=== PATIENT | female | born 1990 | race Caucasian/White ===

== ENCOUNTER 2020-01-10 06:15 | Inpatient (IN) | payer BC ==
[2020-01-10] MEDS ORDERED: Lidocaine 1% 50 ML MDV ONE (07:50)
[2020-01-10] MEDS ORDERED: Sodium Chloride 0.9% 10 ML Syringe FLUSH PRN (08:05)
[2020-01-10] MEDS ORDERED: Nalbuphine 10 MG/ML Syringe IVPUSH PRN (08:05)
--- NOTE | 2020-01-10 08:05 | PCM.LDHP ---
L&D History of Present Illness - General Date of Service: 01/10/20 Admit Problem/Dx: Patient Status Order with Admit Dx/Problem 01/10/20 06:28 Patient Status [ADT] Routine Admission Diagnosis/Problem Admission Diagnosis/Problem Source of Information: Patient History Limitations: Reports: No Limitations - History of Present Illness Introduction:: Patient is a 29 y/o at 40 1/7 wks who presents in labor. Contractions started early this AM, about 0200. Have become more bothersome. Doing well otherwise - Related Data Allergies/Adverse Reactions: Allergies Allergy/AdvReac Type Severity Reaction Status Date / Time No Known Allergies Allergy Verified 01/10/20 11:35 Home Medications: Home Meds Calcium Carb,Gluc/Mag Ox,Gluc [Calcium Magnesium Caplet] 1 tab PO DAILY [History] Ferrous Sulfate [Iron] 325 mg PO DAILY 01/10/20 [History] Prenat 115/Iron Fum/Folic/Dss [ 19 Tablet] 1 tab PO DAILY 01/10/20 [ History] Past Medical History [employer] History: Reports: : 2 Para: 1 LMP (Approximate): - Past Surgical History Musculoskeletal Surgical History: Reports: Other (See Below) Other Musculoskeletal Surgeries/Procedures:: bilateral knee surgeries Social & Family History - Family History Family Medical History: Noncontributory - Tobacco Use Smoking Status *Q: Never Smoker - Alcohol Use Alcohol Use History: No - Recreational Drug Use Recreational Drug Use: No H&P Review of Systems - Review of Systems: Review Of Systems: See Below General: Reports: No Symptoms Pulmonary: Reports: No Symptoms Cardiovascular: Reports: No Symptoms Gastrointestinal: Reports: Abdominal Pain Genitourinary: Reports: No Symptoms Musculoskeletal: Reports: No Symptoms Psychiatric: Reports: No Symptoms Neurological: Reports: No Symptoms L&D Exam - Exam Exam: See Below - Vital Signs Weight: 101.151 kg - OB Specific Contraction Intensity: Strong Movement: Active Heart Tones: Present Heart Tones per Min: 125 Heart Rate (FHR) Variability: Moderate (6-25 bmp) Presentation: Vertex - Keenan Score Keenan Score Cervix Position: Anterior Keenan Score Consistency: Soft Keenan Score Effacement: >80% Keenan Score Dilation: > 5 cm Keenan Score 's Station: -1 ,0 Keenan Score Total: 12 - Exam General: Alert, Oriented, Cooperative Lungs: Clear to Auscultation, Normal Respiratory Effort Cardiovascular: Regular Rate, Regular Rhythm GI/Abdominal Exam: Soft, Non-Tender Genitourinary: Normal external exam Extremities: Normal Inspection Skin: Warm, Dry, Intact - Problem List (1) 40 weeks gestation of SNOMED Code(s): 84665775 ICD Code: Z3A.40 - 40 WEEKS GESTATION OF Status: Acute Current Visit: Yes (2) Normal labor SNOMED Code(s): 60357415 ICD Code: O80 - ENCOUNTER FOR FULL-TERM UNCOMPLICATED DELIVERY; Z37.9 - OUTCOME OF DELIVERY, UNSPECIFIED Status: Acute Current Visit: Yes Problem List Initiated/Reviewed/Updated: Yes Orders Last 24hrs: Active Orders 24 hr Category Date Time Status Patient Status [ADT] Routine ADT 01/10/20 06:28 Active Non Stress Test [RC] PER UNIT ROUTINE Care 01/10/20 06:28 Active Vital Signs [RC] PER UNIT ROUTINE Care 01/10/20 06:28 Active Resuscitation Status Routine Resus Stat 01/10/20 06:27 Ordered Assessment/Plan Comment:: * Patient initially presented 4 cm dilation and quickly went to complete. AROM done once complete. See delivery note. * GBS negative * Labs were done
--- NOTE | 2020-01-10 08:08 | PCM.DEL ---
L & D Note - General Info Date of Service: 01/10/20 - Delivery Note Labor: Spontaneous Delivery Outcome: Livebirth Delivery Method: Spontaneous Vaginal Delivery-Single Delivery Mode: Spontaneous Presentation: Right Occiput Anterior (TOMMIE) Nuchal Cord: None Anesthesia Type: None Amniotic Fluid Description: Clear Episiotomy Type: None Laceration: None Placenta: Intact, Spontaneous Cord: 3 Vessels Estimated Blood Loss: 100 Delivery Comments (Free Text/Narrative):: Patient found to be complete and began pushing. With maternal pushing effort head delivered from an TOMMIE presentation. No nuchal cord present. With gentle downward traction shoulders and body delivered. placed on maternal abdomen. Cord clamped and cut. Cord blood obtained. Placenta allowed time to separate and expelled intact. Inspection of the perineum showed no lacerations. - General Info Date of Service: 01/10/20 - Patient Data Weight - Most Recent: 101.151 kg - Problem List & Annotations (1) 40 weeks gestation of SNOMED Code(s): 65608316 Code(s): Z3A.40 - 40 WEEKS GESTATION OF Status: Acute Current Visit: Yes (2) Normal labor SNOMED Code(s): 78285127 Code(s): O80 - ENCOUNTER FOR FULL-TERM UNCOMPLICATED DELIVERY; Z37.9 - OUTCOME OF DELIVERY, UNSPECIFIED Status: Acute Current Visit: Yes (3) Vaginal delivery SNOMED Code(s): 745447207 Code(s): O80 - ENCOUNTER FOR FULL-TERM UNCOMPLICATED DELIVERY Status: Acute Current Visit: No - Problem List Review Problem List Initiated/Reviewed/Updated: Yes - My Orders Last 24 Hours: My Active Orders 01/10/20 06:27 Resuscitation Status Routine 01/10/20 06:28 Patient Status [ADT] Routine Non Stress Test [RC] PER UNIT ROUTINE Vital Signs [RC] PER UNIT ROUTINE 01/10/20 08:05 Activity as Tolerated [RC] PFP Communication Order [RC] ASDIRECTED Vital Signs [RC] PER UNIT ROUTINE RAPID PLASMA REAGIN,RPR [CHEM] Routine TYPE AND SCREEN [BBK] Routine Nalbuphine [Nubain] 10 mg IVPUSH Q2H PRN Sodium Chloride 0.9% [Saline Flush] 10 ml FLUSH ASDIRECTED PRN Peripheral IV Insertion Adult [OM.PC] Routine 01/10/20 08:06 Peripheral IV Care [RC] . DIRECTED 01/10/20 08:07 Patient Status Manage Transfer [TRANSFER] Routine 01/10/20 08:15 Lactated Ringers [Ringers, Lactated] 1,000 ml IV ASDIRECTED Oxytocin/Lactated Ringers [Pitocin in LR 10 Units/1,000 ML] 10 unit in 1,000 ml IV TITRATE - Assessment Assessment:: PPD#0 - Plan Plan:: * Routine cares * Breast feeding * Discharge home in 1-2 days
[2020-01-10] MEDS ORDERED: Lactated Ringers 1,000 ML IV SCH (08:15)
[2020-01-10] MEDS ORDERED: Oxytocin/Lactated Ringers 10 UNIT/1,000 ML BAG IV SCH (08:15)
[2020-01-10] MEDS ORDERED: Benzocaine/Menthol 20%-0.5% Spray 56 GM Canister TOP PRN (08:43)
[2020-01-10] MEDS ORDERED: Witch Hazel Medicated Pads 40/Jar TOP PRN (08:43)
[2020-01-10] MEDS ORDERED: Acetaminophen 325 MG Tab PO PRN (08:43)
[2020-01-10] MEDS: Docusate Sodium 100 MG Cap PO PRN ×2 (09:55→19:55)
[2020-01-10] MEDS: Ibuprofen 600 MG Tab PO PRN ×2 (11:14→19:54)
--- NOTE | 2020-01-11 08:02 | PCM.PNPP ---
- General Info Date of Service: 01/11/20 Functional Status: Reports: Pain Controlled, Tolerating Diet, Ambulating, Urinating - Review of Systems General: Reports: No Symptoms Pulmonary: Reports: No Symptoms Cardiovascular: Reports: No Symptoms Gastrointestinal: Reports: No Symptoms Genitourinary: Reports: No Symptoms Musculoskeletal: Reports: No Symptoms Neurological: Reports: No Symptoms - Patient Data Vital Signs - Most Recent: Last Vital Signs Temp 36.9 C 01/11/20 03:09 Pulse 79 01/11/20 03:09 Resp 16 01/11/20 03:09 BP 119/63 01/11/20 03:09 Pulse Ox 99 01/11/20 03:09 Weight - Most Recent: 101.151 kg I&O - Last 24 Hours: Intake & Output 01/10/20 01/11/20 01/11/20 22:59 06:59 14:59 Intake Total 120 Balance 120 Lab Results - Last 24 Hours: Laboratory Results - last 24 hr 01/10/20 01/10/20 Range/Units 09:12 09:12 RPR Non-reactive (NONREACTIVE) Blood Type O POSITIVE Gel Antibody Screen Negative Med Orders - Current: Current Medications Acetaminophen (Tylenol) 650 mg PO Q4H PRN PRN Reason: mild pain or fever Benzocaine/Menthol (Dermoplast Pain Relief [place]) 0 gm TOP ASDIRECTED PRN PRN Reason: Perineal Comfort Measure Last Admin: 01/10/20 09:55 Dose: 1 can Docusate Sodium (Colace) 100 mg PO BID PRN PRN Reason: Constipation Last Admin: 01/10/20 19:55 Dose: 100 mg Ibuprofen (Motrin) 600 mg PO Q6H PRN PRN Reason: Mild pain or fever Last Admin: 01/10/20 19:54 Dose: 600 mg Witch Brian (Tucks) 1 pad TOP ASDIRECTED PRN PRN Reason: Perineal Comfort Measure Last Admin: 01/10/20 09:54 Dose: 1 container Discontinued Medications Lactated Ringer's (Ringers, Lactated) 1,000 mls @ 100 mls/hr IV ASDIRECTED MAGALY Oxytocin/Lactated Ringer's (Pitocin In Lr 10 Units/1,000 Ml) 10 unit in 1,000 mls @ 500 mls/hr IV TITRATE MAAGLY; Protocol Last Admin: 01/10/20 12:48 Dose: 500 mls/hr Lidocaine HCl (Xylocaine 1%) Confirm Administered Dose 50 ml .ROUTE .PhilSmile-MED ONE Stop: 01/10/20 07:51 Last Admin: 01/10/20 09:54 Dose: Not Given Nalbuphine HCl (Nubain) 10 mg IVPUSH Q2H PRN PRN Reason: Pain Sodium Chloride (Saline Flush) 10 ml FLUSH ASDIRECTED PRN PRN Reason: Keep Vein Open - Interaction Disposition, : in Room with Family Infant Interaction: Holding Infant Feeding: Breastfed Infant; Nursed Well Support Person: - Recovery Exam Fundal Tone: Firm Fundal Level: 1 Fingerbreadths Below Umbilicus Fundal Placement: Midline Lochia Amount: Small Lochia Color: Rubra/Red Perineum Description: Intact, Minimal Bruising/Swelling Episiotomy/Laceration: None Bladder Status: Voiding Urinary Elimination: Voided - Exam General: Alert, Oriented, Cooperative GI/Abdominal Exam: Soft, Non-Tender Extremities: Normal Inspection Skin: Warm, Dry, Intact - Problem List & Annotations (1) 40 weeks gestation of SNOMED Code(s): 60289216 Code(s): Z3A.40 - 40 WEEKS GESTATION OF Status: Acute (2) Normal labor SNOMED Code(s): 96701282 Code(s): O80 - ENCOUNTER FOR FULL-TERM UNCOMPLICATED DELIVERY; Z37.9 - OUTCOME OF DELIVERY, UNSPECIFIED Status: Acute (3) Vaginal delivery SNOMED Code(s): 324730424 Code(s): O80 - ENCOUNTER FOR FULL-TERM UNCOMPLICATED DELIVERY Status: Acute - Problem List Review Problem List Initiated/Reviewed/Updated: Yes - My Orders Last 24 Hours: My Active Orders 01/10/20 08:05 Activity as Tolerated [RC] PFP Communication Order [RC] ASDIRECTED Vital Signs [RC] PER UNIT ROUTINE 01/10/20 08:06 Peripheral IV Care [RC] . DIRECTED 01/10/20 08:43 Activity as Tolerated [RC] PER UNIT ROUTINE Vital Signs [RC] 03,09,15,21 Acetaminophen [Tylenol] 650 mg PO Q4H PRN Benzocaine/Menthol [Dermoplast Pain Relief [place]] See Dose Instructions TOP ASDIRECTED PRN Docusate Sodium [Colace] 100 mg PO BID PRN Ibuprofen [Motrin] 600 mg PO Q6H PRN witch Brian [Tucks] 1 pad TOP ASDIRECTED PRN Assess Lochia [WOMSER] Per Unit Routine Assess Uterine Involution [WOMSER] Per Unit Routine Breast Pump [WOMSER] Per Unit Routine Heat Therapy [OM.PC] PRN Ice Therapy [OM.PC] Per Unit Routine Perineal Care [OM.PC] Per Unit Routine Peripheral IV Discontinue [OM.PC] Routine Sitz Bath [OM.PC] Per Unit Routine 01/10/20 09:12 PATIENT RETYPE [BBK] Routine 01/11/20 08:02 Ready for Discharge [RC] PER UNIT ROUTINE 01/11/20 08:43 Heat Therapy [OM.PC] PRN - Assessment Assessment:: PPD#1 - Plan Plan:: * Routine cares * Breast feeding * Discharge home today
--- NOTE | 2020-01-11 08:02 | PCM.DCSUM1 ---
Discharge Summary - Discharge Data Discharge Date: 01/11/20 Discharge Disposition: Home, Self-Care 01 Condition: Good - Referral to Home Health Primary Care Physician: Vickie Collins MD - Discharge Diagnosis/Problem(s) (1) 40 weeks gestation of SNOMED Code(s): 27231933 ICD Code: Z3A.40 - 40 WEEKS GESTATION OF Status: Acute (2) Normal labor SNOMED Code(s): 21225745 ICD Code: O80 - ENCOUNTER FOR FULL-TERM UNCOMPLICATED DELIVERY; Z37.9 - OUTCOME OF DELIVERY, UNSPECIFIED Status: Acute (3) Vaginal delivery SNOMED Code(s): 947647260 ICD Code: O80 - ENCOUNTER FOR FULL-TERM UNCOMPLICATED DELIVERY Status: Acute - Patient Summary/Data Complications: None Consults: None Recommended Follow-up Testing/Procedures: Follow up in 3 weeks for check - can be via telehealth Hospital Course: 29 y/o at 40 1/7 wks presented in labor. She made good change to complete dilation and underwent an uncomplicated . See delivery note. did well and was discharged home on PPD#1 - Patient Instructions Diet: Regular Diet as Tolerated Activity: As Tolerated Activity, Other: Pelvic rest for 6 weeks Driving: May Drive Today Showering/Bathing: May Shower Showering/Bathing, Other: May Bathe Notify Provider of: Fever, Increased Pain, Swelling and Redness, Drainage, Nausea and/or Vomiting - Discharge Plan *PRESCRIPTION DRUG MONITORING PROGRAM REVIEWED*: No *COPY OF PRESCRIPTION DRUG MONITORING REPORT IN PATIENT NEEMA: No Home Medications: Home Meds Acetaminophen [Tylenol] 650 mg PO Q4H PRN tablet 01/10/20 [Rx] Docusate Sodium [Colace] 100 mg PO BID PRN cap 01/10/20 [Rx] Ibuprofen [Motrin] 600 mg PO Q6H PRN tablet 01/10/20 [Rx] Prenat 115/Iron Fum/Folic/Dss [ 19 Tablet] 1 tab PO DAILY 01/10/20 [ History] Patient Handouts: Care After Vaginal Delivery Referrals: Vickie Collins MD [Primary Care Provider] - (3 weeks for check - can be telehealth) - Discharge Summary/Plan Comment DC Time >30 min.: No - Patient Data Vitals - Most Recent: Last Vital Signs Temp 36.9 C 01/11/20 03:09 Pulse 79 01/11/20 03:09 Resp 16 01/11/20 03:09 BP 119/63 01/11/20 03:09 Pulse Ox 99 01/11/20 03:09 Weight - Most Recent: 101.151 kg I&O - Last 24 hours: Intake & Output 01/10/20 01/11/20 01/11/20 22:59 06:59 14:59 Intake Total 120 Balance 120 Lab Results - Last 24 hrs: Laboratory Results - last 24 hr 01/10/20 01/10/20 Range/Units 09:12 09:12 RPR Non-reactive (NONREACTIVE) Blood Type O POSITIVE Gel Antibody Screen Negative Med Orders - Current: Current Medications Acetaminophen (Tylenol) 650 mg PO Q4H PRN PRN Reason: mild pain or fever Benzocaine/Menthol (Dermoplast Pain Relief [place]) 0 gm TOP ASDIRECTED PRN PRN Reason: Perineal Comfort Measure Last Admin: 01/10/20 09:55 Dose: 1 can Docusate Sodium (Colace) 100 mg PO BID PRN PRN Reason: Constipation Last Admin: 01/10/20 19:55 Dose: 100 mg Ibuprofen (Motrin) 600 mg PO Q6H PRN PRN Reason: Mild pain or fever Last Admin: 01/10/20 19:54 Dose: 600 mg Witch Tameka (Tucks) 1 pad TOP ASDIRECTED PRN PRN Reason: Perineal Comfort Measure Last Admin: 01/10/20 09:54 Dose: 1 container Discontinued Medications Lactated Ringer's (Ringers, Lactated) 1,000 mls @ 100 mls/hr IV ASDIRECTED MAGALY Oxytocin/Lactated Ringer's (Pitocin In Lr 10 Units/1,000 Ml) 10 unit in 1,000 mls @ 500 mls/hr IV TITRATE MAGALY; Protocol Last Admin: 01/10/20 12:48 Dose: 500 mls/hr Lidocaine HCl (Xylocaine 1%) Confirm Administered Dose 50 ml .ROUTE .STK-MED ONE Stop: 01/10/20 07:51 Last Admin: 01/10/20 09:54 Dose: Not Given Nalbuphine HCl (Nubain) 10 mg IVPUSH Q2H PRN PRN Reason: Pain Sodium Chloride (Saline Flush) 10 ml FLUSH ASDIRECTED PRN PRN Reason: Keep Vein Open
[2020-01-11 09:17] VITALS: BP 119/84; PULSE 87
== END 2020-01-11 10:10 | disposition home or self-care (01) | DRG 560 ==
LOC: JD.OBCHECK 06:15 → JD.OB 06:16 → JD.OBCHECK 07:22 → JD.OB 07:23 → OBSVTOIN 07:55 → JD.OB 07:56
PROVIDERS: ADMIT Obstetrics & Gynecology; ATTEND Obstetrics & Gynecology
PROC: 10E0XZZ Delivery of Products of Conception, External Approach (ICD-10-PCS; principal; 2020-01-10)
DX: O48.0 Post-term pregnancy (principal); Z37.0 Single live birth; Z3A.40 40 weeks gestation of pregnancy
CPT/HCPCS: 36415; 59025; 59409; 86592; 86850; 86900; 86901; A9270-GY; J2590

== ENCOUNTER 2021-10-27 02:29 | Inpatient (IN) | payer BC ==
[2021-10-27] MEDS ORDERED: Ondansetron 4 MG/2 ML SDV IVPUSH PRN (05:51)
[2021-10-27] MEDS ORDERED: Nalbuphine 10 MG/1 ML Vial IVPUSH PRN (05:51)
[2021-10-27] MEDS ORDERED: Oxytocin/Lactated Ringers 10 UNIT/1,000 ML BAG IV SCH (06:00)
[2021-10-27] MEDS ORDERED: Lactated Ringers 1,000 ML IV SCH (06:00)
[2021-10-27] MEDS ORDERED: Sodium Chloride 0.9% 10 ML Syringe FLUSH SCH (09:00)
[2021-10-27] MEDS ORDERED: Witch Hazel Medicated Pads 40/Jar TOP PRN (11:04)
[2021-10-27] MEDS ORDERED: Benzocaine/Menthol 20%-0.5% Spray 78 GM Cannister TOP PRN (11:04)
[2021-10-27] MEDS ORDERED: Acetaminophen 325 MG Tab PO PRN (11:04)
[2021-10-27] MEDS: Ibuprofen 600 MG Tab PO PRN ×3 (11:22→22:14)
[2021-10-27] MEDS: Docusate Sodium 100 MG Cap PO PRN (16:13)
[2021-10-28] MEDS: Ibuprofen 600 MG Tab PO PRN ×2 (04:00→09:39)
[2021-10-28] MEDS ORDERED: Prenatal Multivitamin with Calcium/Folic Acid/Iron Tab PO SCH (09:00)
[2021-10-28] MEDS: Docusate Sodium 100 MG Cap PO PRN (09:39)
[2021-10-28] MEDS ORDERED: Measles, Mumps & Rubella Vaccine 0.5 ML SDV SUBCUT ONE (10:00)
[2021-10-28 14:07] VITALS: BP 132/80; PULSE 99
== END 2021-10-28 11:55 | disposition home or self-care (01) | DRG 560 ==
LOC: JD.OBCHECK 02:29 → JD.OB 02:35 → JD.OBCHECK 05:51 → OBSVTOIN 10:24 → JD.OB 10:25
PROVIDERS: ADMIT Obstetrics & Gynecology; ATTEND Obstetrics & Gynecology
PROC: 10E0XZZ Delivery of Products of Conception, External Approach (ICD-10-PCS; principal; 2021-10-27)
PROC: 10907ZC Drainage of Amniotic Fluid, Therapeutic from Products of Conception, Via Natural or Artificial Opening (ICD-10-PCS; 2021-10-27)
DX: O76 Abnormality in fetal heart rate and rhythm complicating labor and delivery (principal); Z3A.39 39 weeks gestation of pregnancy; Z37.0 Single live birth; Z20.822 Contact with and (suspected) exposure to COVID-19
CPT/HCPCS: 36415; 59025; 59409; 85025; 90471; 90707; A9270-GY; J2590; J7120; U0002